=== PATIENT | male | born 1980 | race Caucasian/White ===

== ENCOUNTER 2017-05-05 06:40 | Emergency (ER) | payer MEDICAID ==
[~2017-05-05] VITALS: Ht 167.6 cm; Wt 104.3 kg
[2017-05-05 06:46] VITALS: BP 135/81
--- NOTE | 2017-05-05 06:50 | NUR ---
PT. AMBULATES TO ER BED 8
--- NOTE | 2017-05-05 06:53 | NUR ---
36Y/M PATIENT PRESENTS TO ED WITH C/O EPIGASTRIC PAIN X 2 HRS . PT STATES HAVING EPIGASTRIC PAIN SINCE WOKE UP, ALSO STATES DIARRHES, NO N/V; SKIN IS PINK/WARM/DRY; AAOX4 WITH EVEN AND STEADY GAIT; LUNGS CLEAR BL; HR EVEN AND REGULAR; PT DENIES ANY FEVER, CP, SOB, OR COUGH AT THIS TIME; PATIENT STATES PAIN OF 8/10 AT THIS TIME; VSS; PATIENT POSITIONED FOR COMFORT; HOB ELEVATED; BEDRAILS UP X2; BED DOWN. ER MD MADE AWARE OF PT STATUS.
[2017-05-05] MEDS ORDERED: ALUMINUM HYD/MAG/SIMETHICONE 30 ML, DICYCLOMINE HCL LIQUID 20 MG, LIDOCAINE VISCOUS 2% ... PO ONE ×3 (07:30)
--- NOTE | 2017-05-05 07:30 | NUR ---
Pt found sitting comfortably in bed. No distress noted.
[2017-05-05 09:20] VITALS: BP 129/76
--- NOTE | 2017-05-05 09:20 | NUR ---
Chart checked and completed. The patient's care was reviewed and supervised by Diamond Rodriguez RN.
--- NOTE | 2017-05-05 09:20 | NUR ---
Patient discharged with v/s stable. Written and verbal after care instructions given and explained. Patient alert, oriented and verbalized understanding of instructions. Ambulatory with steady gait. All questions addressed prior to discharge. ID band removed. Patient advised to follow up with PMD. Rx of PEPSID given. Patient educated on indication of medication including possible reaction and side effects. Opportunity to ask questions provided and answered.
== END 2017-05-05 09:20 | disposition home or self-care (01) ==
LOC: MED 06:40
CPT/HCPCS: 99283